=== PATIENT | male | born 1970 | race Caucasian/White ===

== ENCOUNTER 2021-02-26 09:56 | Observation (INO) | payer SELFPAY ==
[2021-02-26 10:43] LABS: Bilirubin Negative (Negative); Blood, Urine Negative (Negative); Clarity Clear (Clear); Glucose, Urine (Dipstick) Normal (Negative); Ketone, Urine Negative (Negative); Leukocyte Negative Leu/uL (Negative); Nitrite Negative (Negative); Protein, Urine (Dipstick) Negative (Neg-Trace); Specific Gravity, Urine 1.012 (1.002-1.036); Urobilinogen Normal mg/dL (Less than 2)
[2021-02-26] MEDS ORDERED: Labetalol HCl 100 MG/20 ML VIAL ONE (11:40)
[2021-02-26 12:03] LABS: #Basophils 0.1 thou/uL (0.0-0.2); #Eosinphils 0.1 thou/uL (0.0-0.7); #Lymphocytes 1.9 thou/uL (1.20-3.40); #Monocytes 0.6 thou/uL (0.11-0.59); #Neutrophils 5.8 thou/uL (1.40-6.50); %Basophils 0.9 % (0.0-1.0); %Monocytes 7.4 % (0.0-10.0); %Neutrophils 68.7 % (42.0-75.0); Hemoglobin 16.3 g/dL (14.0-18.0); Mean Corpuscular HGB CONC 34.6 g/dL (32.0-36.0); Mean Corpuscular Hemoglobin 33.6 pg (27.0-31.0); Mean Corpuscular Volume 97.1 fL (78.0-98.0); Mean Platelet Volume 6.8 fL (7.4-10.4); Platelet Count 283 thou/uL (130-400); RBC Distribution Width 12.2 % (11.5-14.5); Red Blood Cell (RBC) Count 4.86 mill/uL (4.70-6.10); White Blood Cell (WBC) Count 8.4 thou/uL (4.8-10.8)
[2021-02-26 12:25] LABS: ALT (SGPT) 119 U/L (8-55); AST (SGOT) 111 U/L (5-34); Albumin 4.4 g/dL (3.5-5.0); Alkaline Phosphatase 82 U/L (40-110); Anion Gap 7 mmol/L (10-20); BUN (Urea Nitrogen) 7 mg/dL (8.4-25.7); Bilirubin, Total 0.8 mg/dL (0.2-1.2); Calc. Creatinine Clearance 0 mL/min (70-130); Calcium 9.7 mg/dL (7.8-10.44); Carbon Dioxide 31 mmol/L (22-29); Chloride 98 mmol/L (98-107); Globulin 3.8 g/dL (2.4-3.5); Glucose 100 mg/dL (70-105); Lipase 40 U/L (8-78); Protein, Total 8.2 g/dL (6.0-8.3); Sodium 132 mmol/L (136-145)
[2021-02-26] MEDS ORDERED: hydrALAZINE 20 MG/ML VIAL SLOW IVP PRN (16:20)
[2021-02-26 16:57] LABS: Troponin I Less than 0.010 ng/mL (< 0.028)
[2021-02-26] MEDS ORDERED: hydrALAZINE 20 MG/ML VIAL ONE ×2 (18:03→18:05)
[2021-02-26] MEDS ORDERED: Amlodipine 5 MG TAB PO SCH (19:15)
[2021-02-26] MEDS ORDERED: Aspirin Chewable 81 MG TAB PO SCH (19:15)
[2021-02-26 19:36] VITALS: BMI 26.4
[2021-02-26] MEDS: Nicotine 14 MG PATCH TD SCH (21:00)
[2021-02-26 21:05] LABS: Troponin I Less than 0.010 ng/mL (< 0.028)
[2021-02-26] MEDS: Atorvastatin Calcium 40 MG TAB PO SCH (21:14)
[2021-02-27 05:22] LABS: #Basophils 0.1 thou/uL (0.0-0.2); #Eosinphils 0.1 thou/uL (0.0-0.7); #Lymphocytes 2.3 thou/uL (1.20-3.40); #Monocytes 0.5 thou/uL (0.11-0.59); #Neutrophils 4.7 thou/uL (1.40-6.50); %Basophils 1.5 % (0.0-1.0); %Eosinophils 1.7 % (0.0-10.0); %Lymphocytes 29.7 % (21.0-51.0); %Monocytes 6.5 % (0.0-10.0); %Neutrophils 60.6 % (42.0-75.0); Hemoglobin 14.2 g/dL (14.0-18.0); Mean Corpuscular HGB CONC 32.4 g/dL (32.0-36.0); Mean Corpuscular Hemoglobin 31.6 pg (27.0-31.0); Mean Corpuscular Volume 97.6 fL (78.0-98.0); Mean Platelet Volume 7.2 fL (7.4-10.4); Platelet Count 256 thou/uL (130-400); RBC Distribution Width 12.2 % (11.5-14.5); Red Blood Cell (RBC) Count 4.51 mill/uL (4.70-6.10); White Blood Cell (WBC) Count 7.7 thou/uL (4.8-10.8)
[2021-02-27 06:27] LABS: ALT (SGPT) 96 U/L (8-55); AST (SGOT) 84 U/L (5-34); Albumin 3.6 g/dL (3.5-5.0); Alkaline Phosphatase 68 U/L (40-110); Anion Gap 14 mmol/L (10-20); BUN (Urea Nitrogen) 7 mg/dL (8.4-25.7); Bilirubin, Direct 0.2 mg/dL (0.1-0.3); Bilirubin, Total 0.5 mg/dL (0.2-1.2); Calc. Creatinine Clearance 148 mL/min (70-130); Calcium 9.1 mg/dL (7.8-10.44); Carbon Dioxide 23 mmol/L (22-29); Chloride 102 mmol/L (98-107); Glucose 135 mg/dL (70-105); Potassium 3.2 mmol/L (3.5-5.1); Protein, Total 6.6 g/dL (6.0-8.3); Sodium 136 mmol/L (136-145)
[2021-02-27] MEDS: Amlodipine 5 MG TAB PO SCH (08:01)
[2021-02-27] MEDS: Clopidogrel Bisulfate 75 MG TAB PO SCH (08:01)
[2021-02-27] MEDS: Aspirin 81 mg Enteric Coated Tablet PO SCH (08:01)
[2021-02-27] MEDS: Carvedilol 6.25 MG TAB PO SCH (16:46)
[2021-02-27] MEDS ORDERED: chlordiazePOXIDE HCl 5 MG CAP PO PRN (17:02)
[2021-02-27] MEDS ORDERED: Multivitamins, Adult 10 ML, Folic Acid 1 MG, Thiamine HCl 100 MG in Dextrose 5 %-0.45 %... IV SCH (19:00)
[2021-02-27] MEDS: Nicotine 14 MG PATCH TD SCH (20:54)
[2021-02-27] MEDS: Hydrochlorothiazide 25 MG TAB PO SCH (20:56)
[2021-02-27] MEDS: Atorvastatin Calcium 40 MG TAB PO SCH (20:56)
[2021-02-28 08:16] VITALS: TEMP 98.3
[2021-02-28] MEDS ORDERED: Famotidine 20 MG TAB PO SCH (09:00)
[2021-02-28] MEDS: Carvedilol 6.25 MG TAB PO SCH (09:40)
[2021-02-28] MEDS: Amlodipine 5 MG TAB PO SCH (09:41)
[2021-02-28] MEDS: Hydrochlorothiazide 25 MG TAB PO SCH (09:41)
[2021-02-28] MEDS: Aspirin 81 mg Enteric Coated Tablet PO SCH (09:41)
[2021-02-28] MEDS: Clopidogrel Bisulfate 75 MG TAB PO SCH (09:41)
[2021-02-28] MEDS ORDERED: cloNIDine 0.1 MG TAB PO PRN (10:38)
[2021-02-28 12:48] VITALS: BP 151/87
== END 2021-02-28 14:30 | disposition home or self-care (01) ==
LOC: ERS 09:56 → 2NO 15:10
PROVIDERS: ADMIT Internal Medicine; ATTEND Hospitalist
DX: I16.1 Hypertensive emergency (principal); I10 Essential (primary) hypertension; R20.2 Paresthesia of skin; F17.210 Nicotine dependence, cigarettes, uncomplicated; F17.290 Nicotine dependence, other tobacco product, uncomplicated; E87.1 Hypo-osmolality and hyponatremia; F10.10 Alcohol abuse, uncomplicated; R74.01 Elevation of levels of liver transaminase levels; E87.6 Hypokalemia; M48.02 Spinal stenosis, cervical region; Z79.02 Long term (current) use of antithrombotics/antiplatelets; Z79.899 Other long term (current) drug therapy
CPT/HCPCS: 36415; 70450; 70551; 71045; 72141; 76705; 80053; 80076; 81003; 83690; 84484; 85025; 93005; 96374; 96375; 96376; G0378; J0360; J3411; J7042

== ENCOUNTER 2025-04-07 18:43 | Inpatient (IN) | payer SELFPAY ==
[2025-04-07 19:31] LABS: #Basophils 0.04 10x3/uL (0.0-0.2); #Eosinophils 0.05 10x3/uL (0.0-0.7); #Monocytes 0.62 10x3/uL (0.11-0.59); #Neutrophils 6.34 10x3/uL (1.40-6.50); %Basophils 0.4 % (0.0-1.0); %Eosinophils 0.6 % (0.0-10.0); %Lymphocytes 22.0 % (21.0-51.0); %Monocytes 6.8 % (0.0-10.0); %Neutrophils 69.8 % (42.0-75.0); Hematocrit 39.2 % (42.0-52.0); Hemoglobin 13.3 g/dL (14.0-18.0); Mean Corpuscular Hemoglobin 30.9 pg (27.0-31.0); Mean Corpuscular Volume 91.0 fL (78.0-98.0); Platelet Count 236 10x3/uL (130-400); Red Blood Cell (RBC) Count 4.31 mill/uL (4.70-6.10); White Blood Cell (WBC) Count 9.09 10x3/uL (4.8-10.8)
[2025-04-07] MEDS ORDERED: Nitroglycerin 2% Ointment 1 INCH/1 GM Packet ONE (19:35)
[2025-04-07 19:52] LABS: ALT (SGPT) 75 U/L (Less than 45); AST (SGOT) 134 U/L (11-34); Albumin 3.7 g/dL (3.1-4.5); Alkaline Phosphatase 73 U/L (40-110); Anion Gap 16 mmol/L (10-20); BUN (Urea Nitrogen) 7 mg/dL (8.4-25.7); Bilirubin, Total 0.7 mg/dL (0.3-1.2); Calc. Creatinine Clearance 0 mL/min (70-130); Calcium 8.8 mg/dL (7.8-10.44); Carbon Dioxide 22 mmol/L (22-29); Chloride 103 mmol/L (98-107); Globulin 3.1 g/dL (2.4-3.5); Glucose 93 mg/dL (70-105); Lipase 28 U/L (8-78); Potassium 3.7 mmol/L (3.5-5.1); Sodium 137 mmol/L (136-145)
[2025-04-07] MEDS ORDERED: Ondansetron PF 4 MG/2 ML Vial IVP PRN (20:46)
[2025-04-07 20:48] LABS: Cocaine Metabolite Screen Negative (Negative); THC/Cannabinoid Screen Negative (Negative); Tricyclic Screen Negative (Negative)
[2025-04-07] MEDS ORDERED: Electrolyte Replacement Protocol 1 EACH FS SCH (21:00)
[2025-04-07 21:29] VITALS: BMI 27.7
[2025-04-07 21:36] LABS: Magnesium 1.8 mg/dL (1.6-2.6)
[2025-04-07] MEDS: Magnesium 2 GM/50 ML(in water) 2 GM in Premix 1 BAG IVPB SCH (23:19)
[2025-04-08 03:37] LABS: #Basophils 0.07 10x3/uL (0.0-0.2); #Eosinophils 0.20 10x3/uL (0.0-0.7); #Monocytes 0.70 10x3/uL (0.11-0.59); #Neutrophils 4.99 10x3/uL (1.40-6.50); %Basophils 0.8 % (0.0-1.0); %Eosinophils 2.2 % (0.0-10.0); %Lymphocytes 34.9 % (21.0-51.0); %Monocytes 7.6 % (0.0-10.0); %Neutrophils 54.1 % (42.0-75.0); Hematocrit 38.7 % (42.0-52.0); Hemoglobin 12.5 g/dL (14.0-18.0); Mean Corpuscular Hemoglobin 30.3 pg (27.0-31.0); Mean Corpuscular Volume 93.7 fL (78.0-98.0); Platelet Count 223 10x3/uL (130-400); Red Blood Cell (RBC) Count 4.13 mill/uL (4.70-6.10); White Blood Cell (WBC) Count 9.22 10x3/uL (4.8-10.8)
[2025-04-08 03:52] LABS: INR-International Normal Ratio 1.0; PTT 26.1 sec (22.9-36.1); Prothrombin Time 12.7 sec (12.0-14.7)
[2025-04-08 03:53] LABS: ALT (SGPT) 68 U/L (Less than 45); AST (SGOT) 104 U/L (11-34); Albumin 3.5 g/dL (3.1-4.5); Alkaline Phosphatase 67 U/L (40-110); Anion Gap 12 mmol/L (10-20); BUN (Urea Nitrogen) 7 mg/dL (8.4-25.7); Bilirubin, Total 0.3 mg/dL (0.3-1.2); Calc. Creatinine Clearance 171 mL/min (70-130); Calcium 8.7 mg/dL (7.8-10.44); Carbon Dioxide 25 mmol/L (22-29); Cardiac Risk 2.5 (Less than 4.5); Chloride 103 mmol/L (98-107); Cholesterol 113 mg/dl (< 200 Desired); Globulin 2.8 g/dL (2.4-3.5); Glucose 110 mg/dL (70-105); HDL Cholesterol 46 mg/dL (>60 Neg Risk); LDL Cholesterol, Calculated 52 mg/dL; Magnesium 2.3 mg/dL (1.6-2.6); Potassium 4.0 mmol/L (3.5-5.1); Sodium 136 mmol/L (136-145); Triglycerides 75 mg/dL (Less than 150)
[2025-04-08] MEDS: Acetaminophen 500 MG TAB PO PRN (04:11)
[2025-04-08] MEDS: Enoxaparin 40 MG (0.4 mL) SYRINGE SC SCH (09:50)
[2025-04-08] MEDS: Aspirin Chewable 81 MG TAB PO SCH (09:51)
[2025-04-08] MEDS: Folic Acid 1 MG TAB PO SCH (09:51)
[2025-04-08] MEDS: Multivit, Therapeutic 1 TAB PO SCH (09:51)
[2025-04-08] MEDS: Losartan 25 MG TAB PO SCH (13:42)
[2025-04-08] MEDS: Carvedilol 3.125 MG TAB PO SCH (17:44)
[2025-04-08] MEDS ORDERED: Nitroglycerin 2% Ointment 1 INCH/1 GM Packet TOP PRN (18:41)
[2025-04-08] MEDS: Nitroglycerin 2% Ointment 1 INCH/1 GM Packet ONE (18:44)
[2025-04-09 05:58] LABS: #Basophils 0.07 10x3/uL (0.0-0.2); #Eosinophils 0.27 10x3/uL (0.0-0.7); #Monocytes 0.67 10x3/uL (0.11-0.59); #Neutrophils 4.55 10x3/uL (1.40-6.50); %Basophils 0.8 % (0.0-1.0); %Eosinophils 3.3 % (0.0-10.0); %Lymphocytes 32.4 % (21.0-51.0); %Monocytes 8.1 % (0.0-10.0); %Neutrophils 55.0 % (42.0-75.0); Hematocrit 41.2 % (42.0-52.0); Hemoglobin 13.4 g/dL (14.0-18.0); Mean Corpuscular Hemoglobin 30.6 pg (27.0-31.0); Mean Corpuscular Volume 94.1 fL (78.0-98.0); Platelet Count 235 10x3/uL (130-400); Red Blood Cell (RBC) Count 4.38 mill/uL (4.70-6.10); White Blood Cell (WBC) Count 8.27 10x3/uL (4.8-10.8)
[2025-04-09 06:09] LABS: ALT (SGPT) 70 U/L (Less than 45); AST (SGOT) 107 U/L (11-34); Albumin 3.8 g/dL (3.1-4.5); Alkaline Phosphatase 72 U/L (40-110); Anion Gap 12 mmol/L (10-20); BUN (Urea Nitrogen) 6 mg/dL (8.4-25.7); Bilirubin, Total 0.5 mg/dL (0.3-1.2); Calc. Creatinine Clearance 160 mL/min (70-130); Calcium 9.5 mg/dL (7.8-10.44); Carbon Dioxide 26 mmol/L (22-29); Chloride 102 mmol/L (98-107); Globulin 3.2 g/dL (2.4-3.5); Glucose 105 mg/dL (70-105); Magnesium 2.0 mg/dL (1.6-2.6); Potassium 4.2 mmol/L (3.5-5.1); Sodium 136 mmol/L (136-145)
[2025-04-09] MEDS: Magnesium 2 GM/50 ML(in water) 2 GM in Premix 1 BAG IVPB SCH (07:56)
[2025-04-09] MEDS: Isosorbide Mononitrate 30 MG ER.TAB.S PO SCH (15:00)
[2025-04-09 15:30] VITALS: BP 139/88; TEMP 97.8
[2025-04-10] MEDS ORDERED: PNEUMOC 20-VAL CONJ-DIP CRM/PF 0.5 ML SYRINGE IM ONE (09:00)
[2025-04-10] MEDS ORDERED: FLU (Fluarix Triv) 25-26 (6MOS UP)/PF 45 MCG/0.5 ML Syringe IM ONE (09:00)
[2025-04-10] MEDS ORDERED: Isosorbide Mononitrate 30 MG ER.TAB.S PO SCH (09:00)
[2025-04-10] MEDS ORDERED: Thiamine 100 MG TAB PO SCH (21:00)
== END 2025-04-09 15:50 | disposition home or self-care (01) | DRG 313 ==
LOC: ERS 18:43 → OBS 20:33 → OBSVTOIN 04-08 17:36
PROVIDERS: ADMIT Internal Medicine; ATTEND Student in an Organized Health Care Education/Training Program
DX: R07.9 Chest pain, unspecified (principal); I16.0 Hypertensive urgency; E78.5 Hyperlipidemia, unspecified; R94.5 Abnormal results of liver function studies; I25.10 Atherosclerotic heart disease of native coronary artery without angina pectoris; F10.20 Alcohol dependence, uncomplicated; F17.210 Nicotine dependence, cigarettes, uncomplicated; Z79.899 Other long term (current) drug therapy; Z79.82 Long term (current) use of aspirin; Z86.73 Personal history of transient ischemic attack (TIA), and cerebral infarction without residual deficits
CPT/HCPCS: 36415; 70450; 71045; 78452; 80053; 80061; 80306; 80307; 83690; 83735; 83880; 84100; 84484; 85025; 85610; 85730; 93005; 93010; 93017; 96372; 96374; 96375; A9502; G0378; J1650; J2270; J2785; J3411; J3475